=== PATIENT | male | born 1965 | race Caucasian/White ===

== ENCOUNTER 2021-09-12 10:32 | Emergency (ER) | payer OTHER ==
[~2021-09-12] VITALS: Ht 170.1 cm; Wt 106.1 kg
[~2021-09-12 10:32] MED LIST: AUGMENTIN 500 M1 TAB PO
[2021-09-12] MEDS ORDERED: NAPROXEN250 MG PO (10:57)
[2021-09-12] MEDS ORDERED: TYLENOL325 M1 PO (10:57)
[2021-09-12] MEDS ORDERED: PENICILLIN-VK500 MG PO (10:57)
== END 2021-09-12 11:07 | disposition home or self-care (01) ==
LOC: ED 10:32
DX: K08.89 Other specified disorders of teeth and supporting structures (principal)

== ENCOUNTER → 2022-04-27 | Day surgery (SDC) | payer OTHER ==
[~2022-04-27] VITALS: Ht 170.1 cm; Wt 104.3 kg
[~2022-04-27] MED LIST changes: +AMLODIPINE BESY10 MG PO; +CETIRIZINE HYDR10 MG PO; +MUPIROCIN15 GM T; +NAPROXEN250 MG PO; +PENICILLIN-VK500 MG PO; +TYLENOL325 M1 PO
[2022-04-27 07:42] VITALS: BP 140/87
[2022-04-27 08:40] VITALS: BP 113/71
[2022-04-27 08:51] VITALS: BP 121/74
[2022-04-27 09:10] VITALS: BP 128/71
== END | disposition home or self-care (01) ==
LOC: SDC 04-22 11:00
PROVIDERS: ATTEND Specialist
DX: L57.0 Actinic keratosis (principal); I10 Essential (primary) hypertension; E78.00 Pure hypercholesterolemia, unspecified